=== PATIENT | female | born 2000 | race Caucasian/White ===

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

== ENCOUNTER → 2019-05-27 | Outpatient (CLI) | payer OTHER, SELFPAY ==
[2019-05-27 10:58] VITALS: BMI 20.7
[2019-05-27 20:05] LABS: Chlamydia Trachomatis by PCR Negative (Negative); Neisserai gonorrhoeae by PCR Negative (Negative); Probe Check PASS; Sample Adequacy Control PASS; Specimen Processing Control PASS
== END | disposition home or self-care (01) ==
LOC: LABSPEC 15:52
PROVIDERS: PCP Pediatrics; Visit Provider Nurse Practitioner Women's Health
DX: A64 Unspecified sexually transmitted disease (principal)
CPT/HCPCS: 87491; 87591

== ENCOUNTER → 2020-02-18 | Outpatient (CLI) | payer OTHER, SELFPAY ==
[2020-02-17 09:24] VITALS: BMI 21.9
== END | disposition home or self-care (01) ==
LOC: LABSPEC 16:14
PROVIDERS: Referring Provider Obstetrics & Gynecology; Visit Provider Obstetrics & Gynecology
DX: N93.0 Postcoital and contact bleeding (principal)
CPT/HCPCS: 87070; 87205

== ENCOUNTER → 2020-02-21 07:57 | Outpatient (CLI) | payer OTHER, SELFPAY ==
[2020-02-17 09:24] VITALS: BMI 21.9
--- NOTE | 2020-02-21 07:59 | US_ITS ---
STUDY: ULTRASOUND OF THE FEMALE PELVIS - COMPLETE REASON FOR EXAM: Female, 19 years old. POST COITAL BLEEDING, IUD PLACED MAY 2019 LMP: May 2019. TECHNIQUE: Transabdominal and Transvaginal TECHNICAL QUALITY: Adequate. COMPARISON: None. FINDINGS: The uterus is anteverted and is in a midline position. The uterus measures 4.8 cm x 4.8 cm x 2.5 cm. Normal uterine cervix. The endometrium measures 2 mm in thickness, and is fluid distended. There is no demonstrated endometrial mass. There is no demonstrated myometrial mass. I.U.D. - The patient does have an I.U.D. The right ovary is visualized. The right ovary measures 3.7 cm x 1.9 cm x 1.8 cm. Small follicles are seen within the right ovary. There is no visualized right adnexal mass or complex lesion. There is normal arterial and normal venous vascularity. The left ovary is visualized. The left ovary measures 3 cm x 3 cm x 2.4 cm. Multiple small follicles are seen. There is no visualized left adnexal mass or complex lesion. There is normal arterial and normal venous vascularity. There is minimal fluid in the cul-de-sac. The pre void volume of the bladder was 184 ml. US/Transvaginal Non- IMPRESSION: IUD is seen within the endometrium. Follicles are seen in both ovaries. Small amount of fluid is seen in the cul-de-sac. Electronically Signed: Ander Henley, at 10:59 EST , Service support ,
--- NOTE | 2020-02-21 07:59 | US_ITS ---
STUDY: ULTRASOUND OF THE FEMALE PELVIS - COMPLETE REASON FOR EXAM: Female, 19 years old. POST COITAL BLEEDING, IUD PLACED MAY 2019 LMP: May 2019. TECHNIQUE: Transabdominal and Transvaginal TECHNICAL QUALITY: Adequate. COMPARISON: None. FINDINGS: The uterus is anteverted and is in a midline position. The uterus measures 4.8 cm x 4.8 cm x 2.5 cm. Normal uterine cervix. The endometrium measures 2 mm in thickness, and is fluid distended. There is no demonstrated endometrial mass. There is no demonstrated myometrial mass. I.U.D. - The patient does have an I.U.D. The right ovary is visualized. The right ovary measures 3.7 cm x 1.9 cm x 1.8 cm. Small follicles are seen within the right ovary. There is no visualized right adnexal mass or complex lesion. There is normal arterial and normal venous vascularity. The left ovary is visualized. The left ovary measures 3 cm x 3 cm x 2.4 cm. Multiple small follicles are seen. There is no visualized left adnexal mass or complex lesion. There is normal arterial and normal venous vascularity. There is minimal fluid in the cul-de-sac. The pre void volume of the bladder was 184 ml. US/Pelvic (Non ) IMPRESSION: IUD is seen within the endometrium. Follicles are seen in both ovaries. Small amount of fluid is seen in the cul-de-sac. Electronically Signed: Ander Henley, at 10:59 EST , Service support ,
== END ==
PROVIDERS: Referring Provider Obstetrics & Gynecology; Visit Provider Obstetrics & Gynecology
DX: N93.0 Postcoital and contact bleeding (principal)
CPT/HCPCS: 76830; 76856

== ENCOUNTER 2021-03-22 17:17 | Outpatient (CLI) | payer OTHER, SELFPAY ==
[2021-03-25 16:53] LABS: HPV Reflexed? NOT INDICATED
== END 2021-03-22 23:59 | disposition short-term general hospital (02) ==
LOC: LABSPEC 17:17
PROVIDERS: Visit Provider Obstetrics & Gynecology
DX: Z12.4 Encounter for screening for malignant neoplasm of cervix (principal)
CPT/HCPCS: 88175; G0145

== ENCOUNTER → 2022-03-24 | Outpatient (CLI) | payer OTHER, SELFPAY ==
[2022-03-28 06:06] LABS: Chlamydia By Nucleic Acid AMP Negative (Negative)
[2022-03-28 18:38] LABS: Gonococcus By Nucleic Acid AMP Negative (Negative)
== END | disposition home or self-care (01) ==
LOC: LABSPEC 14:18
PROVIDERS: Referring Provider Obstetrics & Gynecology; Visit Provider Obstetrics & Gynecology
DX: Z11.3 Encounter for screening for infections with a predominantly sexual mode of transmission (principal); R30.0 Dysuria
CPT/HCPCS: 87086; 87491; 87591